=== PATIENT | female | born 1960 | race Asian ===

== ENCOUNTER 2018-05-23 19:29 | Emergency (ER) | payer OTHER ==
[2018-05-23 20:13] LABS: BASOPHILS % (AUTO) 0.7 %; EOSINOPHILS % (AUTO) 0.7 %; HGB - HEMOGLOBIN 14.5 g/dL (12.0-16.0); LYMPHOCYTES % (AUTO) 42.4 %; MEAN CORPUSCULAR HEMOGLOBIN 31.8 pg (27.0-31.0); MEAN CORPUSCULAR HGB CONC 34.1 g/dL (32.0-36.0); MEAN PLATELET VOLUME 8.3 fL (7.9-10.8); MONOCYTES # (AUTO) 0.3 10^3/uL (0.0-1.0); MONOCYTES % (AUTO) 7.1 %; NEUTROPHILS # (AUTO) 2.4 10^3/uL (1.5-6.6); NEUTROPHILS % (AUTO) 49.1 %; PLT - PLATELET COUNT 201 10^3/uL (130-450); RED BLOOD COUNT 4.55 10^6/uL (4.20-5.40); RED CELL DISTRIBUTION WIDTH 12.8 % (12.0-15.0); WHITE BLOOD COUNT 4.8 x10^3/uL (4.8-10.8)
[2018-05-23 20:25] LABS: ALBUMIN 4.6 g/dL (3.2-5.5); ALBUMIN/GLOBULIN RATIO 1.4 (1.0-2.2); BILIRUBIN,TOTAL 0.9 mg/dL (0.2-1.0); CALCIUM 9.4 mg/dL (8.5-10.3); CREATININE 0.8 mg/dL (0.4-1.0); TOTAL PROTEIN 7.8 g/dL (6.7-8.2)
--- NOTE | 2018-05-23 22:19 | ED Physician Documentation ---
PD HPI CHEST PAIN - Stated complaint Stated Complaint: CHEST PX - Chief complaint Chief Complaint: Cardiac - History obtained from History obtained from: Patient - History of Present Illness Timing - onset: Today (about 1-2 hours ago while making dinner, light activity. Has had similar intermittently for the past couple of months. She will feel well and then abruptly start having chest tightness and dyspnea. This will last few minutes, up to half hour or so, then improve. Seen by PMD and referred to Cardiology, with ECG normal and had stress ECHO done, that was normal, per patient.) Timing - onset during: Light activity Timing - duration: Hours (has been 1-2 hours, longer than prior episodes but similar character and intensity. It is improving from worst but not all cleared as yet.) Timing - details: Abrupt onset, Still present, Waxing and waning Quality: Pressure, Tightness. No: Sharp, Tearing Location: Substernal, Left chest Radiation: Left upper extremity Worsened by: No: Exertion, Inspiration, Eating, Movement Associated symptoms: Shortness of air, Feeling faint / dizzy. No: Nausea, General Weakness, Palpitations, Cough Similar symptoms before: No diagnosis (episodes every few days for the past couple of months (not as frequent initially).) Recently seen: Clinic Review of Systems Constitutional: denies: Fever, Chills, Myalgias Nose: denies: Rhinorrhea / runny nose, Congestion Throat: denies: Sore throat Cardiac: reports: Chest pain / pressure. denies: Palpitations, Pedal edema, Calf pain Respiratory: reports: Dyspnea. denies: Cough, Wheezing GI: denies: Abdominal Pain, Nausea, Vomiting, Diarrhea, Bloody / black stool Skin: denies: Rash, Lesions Musculoskeletal: denies: Neck pain, Back pain Neurologic: denies: Focal weakness, Numbness, Near syncope, Altered mental status, Headache Endocrine: denies: Weight loss Immunocompromised: denies: Immunocompromised PD PAST MEDICAL HISTORY - Past Medical History Past Medical History: No Cardiovascular: None Respiratory: None Neuro: None Endocrine/Autoimmune: None - Past Surgical History Past Surgical History: Yes General: Cholecystectomy /SOCIAL SERVICES ANALYST: section - Present Medications Home Medications: Ambulatory Orders Medication Instructions Recorded Confirmed No Known Home Medications [No 05/23/18 05/23/18 Known Home Medications] - Allergies Allergies/Adverse Reactions: Allergies Allergy/AdvReac Type Severity Reaction Status Date / Time No Known Drug Allergies Allergy Verified 05/23/18 19:46 - Living Situation Living Situation: reports: With spouse/s.o. Living Arrangement: reports: At home - Social History Does the pt smoke?: No Smoking Status: Never smoker Does the pt drink ETOH?: Yes Does the pt have substance abuse?: No - Family History Family history: reports: CAD - Immunizations Immunizations are current?: Yes - POLST Patient has POLST: No Results - Vitals Vitals: Vital Signs - 24 hr 05/23/18 23:36 Heart Rate 82 Respiratory 18 Rate Blood Pressure 118/73 O2 Saturation 98 Oxygen O2 Source Room air - EKG (time done) 19:44 Rate: Rate (enter#) (84) Rhythm: NSR [place]: Normal Intervals: Normal [place] QRS: Normal Ischemia: No: Normal ST segments, ST elevation c/w repol Compare to prior EKG: Old EKG unavailable - Labs Labs: Laboratory Tests 05/23/18 05/23/18 05/23/18 20:08 20:08 20:08 WBC 4.8 RBC 4.55 Hgb 14.5 Hct 42.3 MCV 93.0 MCH 31.8 H MCHC 34.1 RDW 12.8 Plt Count 201 MPV 8.3 Neut # (Auto) 2.4 Lymph # (Auto) 2.0 [place] # (Auto) 0.3 Eos # (Auto) 0.0 Baso # (Auto) 0.0 Absolute Nucleated RBC 0.00 Nucleated RBC % 0.1 Sodium 139 Potassium 3.2 L Chloride 104 Carbon Dioxide 28 Anion Gap 7.0 BUN 15 Creatinine 0.8 Estimated GFR (MDRD) 74 L Glucose 112 H Calcium 9.4 Total Bilirubin 0.9 AST 29 ALT 22 Alkaline Phosphatase 84 Troponin I < 0.04 Total Protein 7.8 Albumin 4.6 Globulin 3.2 Albumin/Globulin Ratio 1.4 Lipase 40 - Rads (name of study) chest xray Radiology: Prelim report reviewed (normal) PD MEDICAL DECISION MAKING - ED course Complexity details: reviewed results, considered differential (has sound of possible cardiac/ACS, but has had episodes for weeks/months and has had normal stress ECHO. Though not completely sensitive for ACS, is still reasonable workup. Given the episodic nature of it, could consider intermittent arrhythmia. Monitor is good here, but she was improving on arrival. ), d/w patient - Sepsis Event Vital Signs: Vital Signs - 24 hr 05/23/18 23:36 Heart Rate 82 Respiratory 18 Rate Blood Pressure 118/73 O2 Saturation 98 Oxygen O2 Source Room air Departure - Departure Disposition: 01 Home, Self Care Clinical Impression: Intermittent left-sided chest pain Condition: Stable Record reviewed to determine appropriate education?: Yes Instructions: ED Chest Pain Atypical Unkn Cause Follow-Up: LILLIAN MEDEROS [Primary Care Provider] - Comments: Your EKG, chest x-ray, blood tests appear normal here. Your heart rhythm is normal here. I do not have an obvious cause for your chest discomfort you have been having. Given the episodic pattern to it, I would consider the possibility of abnormal heart rhythm coming and going. I would suggest contacting the auto locator he would seen previously and suggest or get his opinion on a [facility]ter hospital monitor. This would record your heart rhythm over the course of a week or so and see if the episodes correspond to any irregularity of the heart rhythm. Discharge Date/Time: 05/23/18 23:35
--- NOTE | 2018-05-23 23:22 | XRAY Report ---
Reason: chest pain left sided Procedure Date: 05/23/2018 Accession Number: [id number] / [id number] Procedure: XR - Chest 2 View X-Ray CPT Code: 10804 FULL RESULT: EXAM: CHEST RADIOGRAPHY EXAM DATE: 05/23/2018 11:15 PM. CLINICAL HISTORY: Chest pain left sided. COMPARISON: None. TECHNIQUE: 2 views. FINDINGS: Lungs/Pleura: No alveolar consolidation or pleural effusion seen. No pneumothorax. Mediastinum: Heart and mediastinal contours are unremarkable. Other: None. IMPRESSION: 1. No acute abnormality seen in the chest. [facility]
[2018-05-23 23:36] VITALS: BP 118/73
== END 2018-05-23 23:35 | disposition home or self-care (01) ==
LOC: ED 19:29
DX: R07.89 Other chest pain (principal)
CPT/HCPCS: 36415; 71046; 80053; 83690; 84484; 85025; 93005; 99283; 99284